=== PATIENT | male | born 1980 | race Caucasian/White ===

== ENCOUNTER 2021-04-07 11:38 | Emergency (ER) | payer SELFPAY ==
[2021-04-07 11:49] VITALS: BP 196/111; PULSE 70; RESP 18; TEMP 36.8; O2SAT 99
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
[2021-04-07] MEDS: Carbamide Peroxide 15 ML BTL (12:34)
--- NOTE | 2021-04-07 13:19 | NUR.NOTE ---
pt referral sent to [facility] to establish pcp
--- NOTE | 2021-04-10 09:17 | PDOC.ERCMPRO ---
- If Service Date Differs Date of service: 04/10/21 Time of Service: 09:18 Care Management Progress Note Bob is seen in the ED for an ear infection. At the request of ED provider, AUBRIE coordinates a referral to Pamela Mercer MD, of [facility], on-call provider, to assist Bob in obtaining a follow up appointment and in establishing care with a PCP. Bob is also referred to the [facility]'s community division human resources manager to assist him with exploring health insurance options, as he is currently uninsured.
== END 2021-04-07 13:28 | disposition home or self-care (01) ==
PROVIDERS: Emergency Provider Physician Assistant
DX: H66.92 Otitis media, unspecified, left ear (principal); H61.22 Impacted cerumen, left ear
CPT/HCPCS: 99283

== ENCOUNTER 2023-02-17 07:32 | Emergency (ER) | payer OTHER, SELFPAY ==
[2023-02-17 07:35] VITALS: BP 154/110; PULSE 74; RESP 16; TEMP 36.2; O2SAT 99
--- NOTE | 2023-02-17 08:15 | DI.RAD_ITS ---
Exam(s) XR SHOULDER RT COMPLETE 2+V EXAM: XR SHOULDER RT COMPLETE 2+V CLINICAL HISTORY: Fall 3 weeks ago, Shoulder pain. TECHNIQUE: 2D digital imaging was performed of the right shoulder. Five images were obtained. AP, Grashey, Y-view and axillary views were obtained. COMPARISON: No exams were available for comparison FINDINGS: BONES: No acute fracture is present. No bony destructive lesion is seen. JOINTS: No dislocation present. The acromioclavicular and glenohumeral joints are well maintained. SOFT TISSUE: Normal. IMPRESSION: Unremarkable radiographs of the right shoulder. DATA REPOSITORY: RADIATION DOSE DELIVERED:
--- NOTE | 2023-02-17 08:23 | ED.GENADUL_ITS ---
Discharge Plan Disposition Patient Disposition: Home Condition: Stable Discharge Details Clinical Impression: Other sprain of right shoulder joint, initial encounter Primary Care Provider: None,None ED Provider: Hannah Mccord Home Meds and New Rx's Prescriptions: New lidocaine 5 % adhesive patch,medicated 1 patch topical DAILY Qty: 15 0RF Rx Instructions: leave on most painful area for up to 12 hrs Continued Ibuprofen [Ibuprofen Ib] 200 MG Tablet No Action [id number] [DAY-TIME] 1 EACH capsule doxycycline hyclate 100 MG capsule 100 mg PO BID Qty: 19 0RF amoxicillin-pot clavulanate [Augmentin] 875-125 mg tablet 1 tab PO BID Qty: 14 0RF Discharge Instructions Instructions: Shoulder Sprain (ED) Additional Instructions: Alternate ice and heat. X-rays show no acute fracture, dislocation or significant abnormality. I have given you a physical therapy referral, please call to make an appointment if desired. I suspect that you sprained your shoulder and it may take a few more weeks for it to heal completely. If you continue to have worsening pain please follow-up with orthopedics. Take the muscle relaxers as prescribed, these may make you sleepy. Please take Tylenol or Ibuprofen with food every 4-6 hours as needed for pain and swelling. Do not take more than 4 tablets of ibuprofen no more than 3 times a day. Follow up with primary care provider in 3-5 days. Return to ED sooner if any worsening or concerns. Increase oral fluids. Stand Alone Forms: Physical Therapy Referral, Work Release Referrals: Marco A Hassan MD [ [facility] STAFF PHYSICIAN] - 2 weeks Medical Decision Making 42 year old male presents to the ED with CC of Right shoulder pain, stiffness, popping that is getting worse since a fall off a 15 foot ladder onto scaffolding approximately 3 weeks ago. Patient states he was holding onto ladder and hanging there with his right arm before he fell. Denies LOC, midline C spine, T, or L spine pain. Denies chest pain, or SOB, no rib pain, crepitus or stepoff palpated to chest wall on exam. He does have full ROM on exam, no obvious deformity. He has been taking Tylenol, and Ibuprofen at home with little relief. Shoulder XR ordered, suspect sprain. Diff diagnosis includes occult fracture, subacture fracture, ligament tear, musculoskeletal strain. X-ray of the shoulder shows nothing acute. We will give patient discharge instructions on musculoskeletal strain. We will give him Flexeril to go here in the department. Instructed on alternating ice and heat and given referral for physical therapy. This text was generated using [employer] system, please disregard any oddities of phrase or misspellings. Imaging Data Radiologic Study: Imaging: X-Ray Radiologist's impression: EXAM: XR SHOULDER RT COMPLETE 2+V CLINICAL HISTORY: Fall 3 weeks ago, Shoulder pain. TECHNIQUE: 2D digital imaging was performed of the right shoulder. Five images were obtained. AP, Grashey, Y-view and axillary views were obtained. COMPARISON: No exams were available for comparison FINDINGS: BONES: No acute fracture is present. No bony destructive lesion is seen. JOINTS: No dislocation present. The acromioclavicular and glenohumeral joints are well maintained. SOFT TISSUE: Normal. IMPRESSION: Unremarkable radiographs of the right shoulder. HPI General Mode of arrival: ambulatory . Date/Time Provider Initiated Documentation: 02/17/23 08:01 . Information obtained by: patient, RN notes reviewed and old records reviewed . HPI Narrative: 42 year old male presents to the ED with CC of Right shoulder pain, stiffness, popping that is getting worse since a fall off a 15 foot ladder onto scaffolding approximately 3 weeks ago. Patient states he was holding onto ladder and hanging there with his right arm before he fell. Denies LOC, midline C spine, T, or L spine pain. Denies chest pain, or SOB, no rib pain, crepitus or stepoff palpated to chest wall on exam. He does have full ROM on exam, no obvious deformity. He has been taking Tylenol, and Ibuprofen at home with little relief. Related Data Home Medications Medication Instructions Recorded Confirmed Ibuprofen [Ibuprofen Ib] 09/02/17 doxycycline hyclate 100 mg capsule 100 mg PO BID #19 caps 09/02/17 [id number] 09/02/17 30 mg-15 mg-325 mg capsule (DAY-TIME) amoxicillin 875 mg-potassium 1 tab PO BID #14 tabs 04/07/21 clavulanate 125 mg tablet (Augmentin) lidocaine 5 % topical patch 1 patch topical DAILY #15 ea 02/17/23 Previous Rx's Medication Instructions Recorded doxycycline hyclate 100 mg capsule 100 mg PO BID #19 caps 09/02/17 amoxicillin 875 mg-potassium 1 tab PO BID #14 tabs 04/07/21 clavulanate 125 mg tablet (Augmentin) lidocaine 5 % topical patch 1 patch topical DAILY #15 ea 02/17/23 Allergies Allergy/AdvReac Type Severity Reaction Status Date / Time Penicillins Allergy Swelling/Ed Unverified 02/17/23 07:52 mignon General Stated Complaint: Orthopedic LAURI: 4 Review of Systems All systems reviewed & are unremarkable except as noted in HPI and below Constitutional Constitutional: Denies headache(s) ENT Ears, Nose, Mouth, and Throat: Denies vertigo, Denies dizziness, Denies headache(s) and Reports neck pain (Right paraspinous pain, no midline pain) Cardiovascular Cardiovascular: Denies chest pain and Denies dyspnea Respiratory Respiratory: Denies dyspnea Musculoskeletal Musculoskeletal: Reports as per HPI, Denies back pain, Denies deformity, Reports arthralgias, Denies joint swelling, Denies limited range of motion, Reports neck pain (Right paraspinous pain, no midline pain), Denies numbness and Reports stiffness Neurologic Neurologic: Denies vertigo, Denies dizziness, Denies headache(s) and Denies numbness PFSH All Active Problems (Updated 02/17/23 @ 08:58 by Hannah Mccord NP) Otitis media (Acute) Cerumen impaction (Acute) Other sprain of right shoulder joint, initial encounter (Acute) Social History Smoking/Tobacco Use Status: Current every day Tobacco Type: e-cigarettes Smoking risk assessment performed?: Yes Alcohol Intake: current Alcohol Intake frequency: 3 or more drinks per day Drug use: Daily Substance use type: marijuana Housing: other Do you feel safe at home: Yes Do you feel safe in your relationship?: Yes Exam Narrative Exam Narrative: General: Well Developed, Awake and Alert, conversant. Skin: Warm and Dry HEENT: Head: No palpable deformities, Normocephalic Eyes: Pupils PERRLA, EOM's intact. Nose/Face: Atraumatic. Facial bones nontender to palpation and stable with manipulation. Mouth/Throat: No intraoral trauma. Teeth and mandible are intact. Neck: No midline tenderness, no step off, no deformity to palpation of C-spine. Trachea midline. Chest: No surface trauma. Nontender without crepitus or deformity. Lungs clear to ausculatation bilaterally. Heart: RRR, no rubs, murmurs or gallop. Extremities: no surface trauma. Sensation intact. Peripheral pulses intact and equal. No deformity no swelling no crepitus no step-off. Full range of motion intact. Stiffness and pain with active range of motion with pronation supination and external rotation. Neuro: ANO x4, GCS 15, Motor and sensory exam nonfocal. Course Vital Signs Vital signs: Vital Signs Temperature 36.2 C L 02/17/23 07:35 Pulse 74 02/17/23 07:35 Respiratory Rate 16 02/17/23 07:35 Blood Pressure 154/110 H 02/17/23 07:35 Pulse Oximetry 99 02/17/23 07:35 Temperature 36.2 C L 02/17/23 07:35 Pulse 74 02/17/23 07:35 Respiratory Rate 16 02/17/23 07:35 Respiratory Effort Normal, Non-Labored 02/17/23 07:47 Blood Pressure 154/110 H 02/17/23 07:35 Pulse Oximetry 99 02/17/23 07:35 Oxygen Delivery Method Room Air 02/17/23 07:35 Oxygen Flow Rate 0 02/17/23 07:35 Pain Level 9 02/17/23 07:47 PAWSS Have you Been Recently Intoxicated or Drunk Within the Last 30 days?: No Have you Ever Experienced Previous Episodes of Alcohol Withdrawal?: No Have you ever Experienced Withdrawal Seizures?: No Have you ever Experienced Delirium Tremens(DT)s?: No Have you ever undergone Alcohol Rehabilitation Treatment (i.e, inpt ot outpatient treatment programs)?: No Have you ever Experienced Blackouts?: No Have you ever Combined Alcohol with other Downers within the last 90 days?: No Have you ever Combined Alcohol with any other Substance of Abuse during the last 90 days?: No Result: 0
[2023-02-17] MEDS: Lidocaine 5% Patch 1 PATCH TP (09:22)
[2023-02-17] MEDS: Cyclobenzaprine 10 MG TAB PO (09:22)
--- NOTE | 2023-02-17 09:40 | NUR.NOTE ---
Nursing Note:referral to care management to establish primary for followup care
[2023-02-17] MEDS: Cyclobenzaprine 10 MG TAB, 3 TABS/BTL PO (09:43)
== END 2023-02-17 09:45 | disposition home or self-care (01) ==
PROVIDERS: Emergency Provider Registered Nurse Emergency
DX: S43.401A Unspecified sprain of right shoulder joint, initial encounter (principal); W11.XXXA Fall on and from ladder, initial encounter; Y93.89 Activity, other specified; Y92.89 Other specified places as the place of occurrence of the external cause; Y99.0 Civilian activity done for income or pay
CPT/HCPCS: 99283; 73030

== ENCOUNTER 2023-05-05 07:40 | Emergency (ER) | payer OTHER, SELFPAY ==
[2023-05-05 07:43] VITALS: BP 186/123; PULSE 74; RESP 18; TEMP 36.9; O2SAT 100
--- NOTE | 2023-05-05 08:00 | DI.RAD_ITS ---
Exam(s) XR CHEST 2V PA LATERAL EXAM: XR CHEST 2V PA LATERAL CLINICAL HISTORY: 6ft fall, right inf posterior lateral ribs TTP TECHNIQUE: 2D digital imaging was performed. COMPARISON: 02 September 2017 FINDINGS: HEART: Normal size. Aorta: Not dilated. PULMONARY VASCULATURE: Normal. LUNGS: Clear. PLEURAL SPACE: No pleural effusion or pneumothorax. BONE:Unremarkable for age. IMPRESSION: No acute abnormality. DATA REPOSITORY: RADIATION DOSE DELIVERED:
[2023-05-05] MEDS: Ketorolac 15 MG/ML VIAL IM (08:11)
[2023-05-05] MEDS: Acetaminophen 325 MG TAB 650 MG PO (08:11)
--- NOTE | 2023-05-05 08:16 | W.ED.GENAD ---
Discharge Plan Disposition Patient Disposition: Home Condition: Good Discharge Details Clinical Impression: Rib pain on right side Primary Care Provider: Derick Kumar ED Provider: Gely Bell Home Meds and New Rx's Prescriptions: No Action acetaminophen 500 mg capsule 1,500 mg PO Q6H PRN naproxen 500 mg tablet 500 mg PO BID PRN (Reason: pain) Qty: 60 0RF Ibuprofen [Ibuprofen Ib] 200 MG tablet lidocaine 5 % adhesive patch,medicated 1 patch topical DAILY Qty: 15 0RF Hold Instructions: Pt Stopped/Never Started Rx Instructions: leave on most painful area for up to 12 hrs Discharge Instructions Instructions: Chest Wall Pain (ED) Additional Instructions: Continue to take tylenol and ibuprofen at home; follow the directions on the bottle. Call your primary care doctor today to schedule an appointment to follow up on your visit here and discuss your high blood pressure. Return to the emergency department for new or worsening symptoms, including new/different/worse pain, or if you have any other concerns. Stand Alone Forms: Work Release Referrals: Derick Kumar DO [Primary Care Provider] - Medical Decision Making 42yo previously healthy male presenting with right rib pain after fall yesterday afternoon from about 6 feet up onto a wooden pallet. 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 Hypertensive on arrival, vital signs reassuring, right posterior lateral chest wall tenderness on exam otherwise no traumatic findings. History and exam consistent with trauma/MSK etiology; would not workup for cardiac etiology, AL, pulmonary embolism, etc., with labs or advanced imaging. Medicated with tylenol, toradol. CXR independently reviewed, no displaced fractures or pneumothorax on my view, agree with radiology read below. On reassessment he reports pain has improved. Advised symptomatic treatment at home. Patient reports known hypertension but not currently taking any medications. Instructed to followup with a PCP regarding hypertension; referral sent. Discharged home; discharge instructions including return precautions were reviewed with patient who verbalized understanding. All questions were answered and they are in full agreement with the plan. Imaging Data Radiologic Study: Radiologist's impression: IMPRESSION: No acute abnormality. HPI General Mode of arrival: ambulatory. Date/Time Provider Initiated Documentation: 05/05/23 07:48. Limitations to Documentation: no limitations. Information obtained by: patient. HPI Narrative: 42yo previously healthy male presenting with right rib pain after fall. Yesterday afternoon at work fell from about 6 feet up, landed on his right side on a wooden pallet. Right sided rib pain since then, worse with breathing. Thinks he may have struck his head; no loss of consciousness. No headache, nausea, or vomiting. Pain is dull, moderate, and improved with ibuprofen. He was able to sleep last night after taking medication. 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 He is otherwise in his usual state of health with no fevers, chills, rash, abdominal pain, extremity pain, numbness, tingling, weakness, or other concerns. Related Data Home Medications Medication Instructions Recorded Confirmed Ibuprofen [Ibuprofen Ib] 09/02/17 02/26/23 lidocaine 5 % topical patch 1 patch topical DAILY #15 ea 02/17/23 05/05/23 acetaminophen 500 mg capsule 1,500 mg PO Q6H PRN 02/26/23 05/05/23 naproxen 500 mg tablet 500 mg PO BID PRN pain #60 tabs 02/26/23 05/05/23 Previous Rx's Medication Instructions Recorded lidocaine 5 % topical patch 1 patch topical DAILY #15 ea 02/17/23 naproxen 500 mg tablet 500 mg PO BID PRN pain #60 tabs 02/26/23 Allergies Allergy/AdvReac Type Severity Reaction Status Date / Time Penicillins Allergy Swelling/Ed Unverified 05/05/23 07:54 mignon General Stated Complaint: Fall/Non TraumaCriteria LAURI: 4 Review of Systems Narrative: see [facility] All Active Problems (Updated 05/05/23 @ 09:20 by Gely Bell MD) Rib pain on right side (Acute) Right shoulder injury (Acute) Otitis media (Acute) Cerumen impaction (Acute) Social History Smoking/Tobacco Use Status: Current every day Tobacco Type: e-cigarettes Smoking risk assessment performed?: Yes Alcohol Intake: current Alcohol Intake frequency: 3 or more drinks per day Drug use: Daily Substance use type: marijuana Housing: house Do you feel safe at home: Yes Do you feel safe in your relationship?: Yes Exam Narrative Exam Narrative: GENERAL: Alert, no acute distress. SKIN: Warm and well perfused. No rashes, bruises, discolorations or abrasions. HEAD: Atraumatic, normocephalic without edema, discoloration or evidence of trauma. EYES: PERRL. No scleral icterus or conjunctival injection. EARS: No hemotympanum. MOUTH: No malocclusion or trismus. NECK: Trachea midline. No discolorations or edema. CV: Regular rate and rhythm, Normal s1 and s2. No murmurs, rubs, or gallops. PV: Radial pulses 2+ bilaterally and symmetric. 2+ capillary refill. No extremity edema. CHEST: No abrasions or ecchymosis. Chest symmetric with respirations. Right posterior lateral chest wall TTP. No crepitus. Lungs are clear to auscultation bilaterally. ABDOMEN: No ecchymosis or abrasions. Soft, nondistended, nontender. BACK: No abrasions, skin openings, or ecchymosis. Spine without bony tenderness. PELVIC: Pelvis stable, nontender to lateral compression MSK: No gross deformities.. Tolerates full range of motion of extremities without tenderness. NEURO: GCS 15. Sensation grossly intact. Moves all extremities freely against gravity. Course Vital Signs Vital signs: Vital Signs Temperature 36.9 C 05/05/23 07:43 Pulse 74 05/05/23 07:43 Respiratory Rate 18 05/05/23 07:43 Blood Pressure 186/123 H 05/05/23 07:43 Pulse Oximetry 100 05/05/23 07:43 Temperature 36.9 C 05/05/23 07:43 Pulse 74 05/05/23 07:43 Respiratory Rate 18 05/05/23 07:43 Respiratory Effort Short of Breath 05/05/23 07:46 Blood Pressure 186/123 H 05/05/23 07:43 Pulse Oximetry 100 05/05/23 07:43 Oxygen Delivery Method Room Air 05/05/23 07:43 Oxygen Flow Rate 0 05/05/23 07:43 PAWSS Have you Been Recently Intoxicated or Drunk Within the Last 30 days?: No Have you Ever Experienced Previous Episodes of Alcohol Withdrawal?: No Have you ever Experienced Withdrawal Seizures?: No Have you ever Experienced Delirium Tremens(DT)s?: No Have you ever undergone Alcohol Rehabilitation Treatment (i.e, inpt ot outpatient treatment programs)?: No Have you ever Experienced Blackouts?: No Have you ever Combined Alcohol with other Downers within the last 90 days?: No Have you ever Combined Alcohol with any other Substance of Abuse during the last 90 days?: No Positive Blood Alcohol level on Presentation? [PCS.BAL]: No Evidence of Increased Autonomic Activity (i.e. HR>120, tremor, sweating, agitation, nausea)?: No Result: 0
[2023-05-05 09:31] VITALS: BP 215/143; PULSE 66; RESP 18; O2SAT 100
--- NOTE | 2023-05-05 09:31 | NUR.NOTE ---
Referral given to Care Management for needsPCP/hypertension, establish care/ within 2 weeks. Nursing Note:
== END 2023-05-05 09:35 | disposition home or self-care (01) ==
PROVIDERS: Emergency Provider Student in an Organized Health Care Education/Training Program; PCP Family Medicine
DX: R07.81 Pleurodynia; I10 Essential (primary) hypertension; W17.89XA Other fall from one level to another, initial encounter; Y99.0 Civilian activity done for income or pay; F17.200 Nicotine dependence, unspecified, uncomplicated; Z88.0 Allergy status to penicillin
CPT/HCPCS: 96372; 99284; 71046; J1885

== ENCOUNTER 2023-05-10 21:27 | Emergency (ER) | payer OTHER, SELFPAY ==
[2023-05-10 21:29] VITALS: BP 143/90; PULSE 84; RESP 18; TEMP 36.6; O2SAT 95
--- NOTE | 2023-05-10 21:45 | DI.RAD_ITS ---
Exam(s) XR RIBS RT W PA LAT CHEST Exam: XR RIBS RT W PA LAT CHEST CLINICAL HISTORY: right rib pain TECHNIQUE: 2D digital imaging was performed. PA and lateral chest. Four views right ribs. COMPARISON: CR XR CHEST 2V PA LATERAL from 05/05/2023 FINDINGS: MEDIASTINUM: Normal. HEART: Normal. PULMONARY VASCULATURE: Normal. LUNGS: Clear. PLEURAL SPACE: No pleural effusion or pneumothorax. SPINE:NORMAL. Right RIBS: Mildly displaced fractures of the lateral right 8th and 9th ribs. OTHER FINDINGS:Normal. IMPRESSION: 1. No acute pulmonary findings. 2. Mildly displaced fractures right 8th and 9th ribs. DATA REPOSITORY: RADIATION DOSE DELIVERED:
[2023-05-10] MEDS: Lidocaine 5% Patch 1 PATCH TP (22:00)
--- NOTE | 2023-05-10 22:42 | ED.GENADUL_ITS ---
Discharge Plan Disposition Patient Disposition: Home Discharge Details Clinical Impression: Multiple rib fractures Primary Care Provider: Derick Kumar ED Provider: Millicent Spencer Home Meds and New Rx's Prescriptions: New oxycodone 5 mg tablet 5 mg PO Q6H PRNQty: 12 0RF cyclobenzaprine 10 mg tablet 10 mg PO TID PRNQty: 14 0RF lidocaine [Lidoderm] 5 % adhesive patch,medicated 1 patch topical DAILY Qty: 15 0RF Rx Instructions: leave on most painful area for up to 12 hrs Continued acetaminophen 500 mg capsule 1,500 mg PO Q6H PRN Ibuprofen [Ibuprofen Ib] 200 MG tablet Discharge Instructions Instructions: Rib Fracture (ED) Additional Instructions: take oxycodone sparingly, this can become addictive, do not drive for 8 hours after taking this medication You may take Flexeril for additional pain control, do not drive your vehicle for 8 hours after taking this medication You may apply Lidoderm patch, 12 hours on, 12 hours off Use a spirometer at least 10 times a day to prevent pneumonia Return earlier should you have new or worsening complaints including fever, chills, worsening cough Recommendation would be to start taking MiraLAX or Dulcolax to help with your constipation Stand Alone Forms: Work Release Referrals: Derick Kumar DO [Primary Care Provider] - Medical Decision Making 42-year-old male presenting with persistent and worsening right chest wall pain after a fall, I did order repeat x-ray to evaluate for pneumothorax although lung sounds are intact bilaterally, patient is alert and oriented, no visible signs of trauma, reproducible right lateral chest wall pain, x-ray shows evidence of 2 rib fractures to ribs 8 and 9 Given oxycodone for pain, spirometry, work note for 2 weeks No evidence of pneumonia or pneumothorax on x-ray pending my interpretation, pending radiology review Return precautions reviewed and patient expressed understanding No evidence of subcutaneous air, no abdominal tenderness, specifically no tenderness of her right liver or spleen, no retroperitoneal bruising or tenderness appreciated Distal pulses intact HPI General Date/Time Provider Initiated Documentation: 05/10/23 21:34 . HPI Narrative: 42-year-old gentleman presents approximately 6 days after a fall while stefan approximately 6 feet and injuring the right side of his chest. Denies any shortness of breath but states the pain is not improving. Denies fever or chills. Has had a cough, smokes daily. Denies any head injury or neck pain. Denies any abdominal pain. Related Data Home Medications Medication Instructions Recorded Confirmed Ibuprofen [Ibuprofen Ib] 09/02/17 02/26/23 acetaminophen 500 mg capsule 1,500 mg PO Q6H PRN 02/26/23 05/10/23 cyclobenzaprine 10 mg tablet 10 mg PO TID PRN #14 tabs 05/10/23 lidocaine 5 % topical patch 1 patch topical DAILY #15 ea 05/10/23 (Lidoderm) oxycodone 5 mg tablet 5 mg PO Q6H PRN #12 tabs 05/10/23 Previous Rx's Medication Instructions Recorded cyclobenzaprine 10 mg tablet 10 mg PO TID PRN #14 tabs 05/10/23 lidocaine 5 % topical patch 1 patch topical DAILY #15 ea 05/10/23 (Lidoderm) oxycodone 5 mg tablet 5 mg PO Q6H PRN #12 tabs 05/10/23 Allergies Allergy/AdvReac Type Severity Reaction Status Date / Time Penicillins Allergy Swelling/Ed Unverified 05/10/23 21:33 mignon General Stated Complaint: Recheck LAURI: 4 PFSH All Active Problems (Updated 05/10/23 @ 22:39 by KINGSTON Toney) Multiple rib fractures (Acute) Rib pain on right side (Acute) Right shoulder injury (Acute) Otitis media (Acute) Cerumen impaction (Acute) Social History Smoking/Tobacco Use Status: Current every day Tobacco Type: e-cigarettes Smoking risk assessment performed?: Yes Alcohol Intake: current Alcohol Intake frequency: 3 or more drinks per day Alcohol type: beer Drug use: Daily Substance use type: does not use Housing: house Do you feel safe at home: Yes Do you feel safe in your relationship?: Yes Course Vital Signs Vital signs: Vital Signs Temperature 36.6 C 05/10/23 21: Pulse 84 05/10/23 21:29 Respiratory Rate 18 05/10/23 21:29 Blood Pressure 143/90 H 05/10/23 21:29 Pulse Oximetry 95 05/10/23 21:29 Temperature 36.6 C 05/10/23 21:29 Temperature Source Oral 05/10/23 21:29 Pulse 84 05/10/23 21:29 Respiratory Rate 18 05/10/23 21:29 Respiratory Effort Normal, Non-Labored 05/10/23 21:32 Blood Pressure 143/90 H 05/10/23 21:29 Blood Pressure Position Sitting 05/10/23 21:29 Pulse Oximetry 95 05/10/23 21:29 Oxygen Delivery Method Room Air 05/10/23 21:29 Oxygen Flow Rate 0 05/10/23 21:29 Pain Level 9 05/10/23 21:29 PAWSS Have you Been Recently Intoxicated or Drunk Within the Last 30 days?: No Have you Ever Experienced Previous Episodes of Alcohol Withdrawal?: No Have you ever Experienced Withdrawal Seizures?: No Have you ever Experienced Delirium Tremens(DT)s?: No Have you ever undergone Alcohol Rehabilitation Treatment (i.e, inpt ot outpatient treatment programs)?: No Have you ever Experienced Blackouts?: No Have you ever Combined Alcohol with other Downers within the last 90 days?: No Have you ever Combined Alcohol with any other Substance of Abuse during the last 90 days?: No Positive Blood Alcohol level on Presentation? [PCS.BAL]: No Evidence of Increased Autonomic Activity (i.e. HR>120, tremor, sweating, agitation, nausea)?: No Result: 0
[2023-05-10 22:46] VITALS: BP 145/83; PULSE 67; RESP 16; O2SAT 95
--- NOTE | 2023-05-10 23:21 | DI.[facility]AD_ITS ---
PROCEDURE INFORMATION: Exam: XR Right Ribs with PA Chest Exam date and time: 05/10/2023 10:06 PM Age: 42 years old Clinical indication: Right-sided; Other: R rib pain; Patient HX: Right rib pain; Additional info: Bb placed at site of most pain, pain wraps around TECHNIQUE: Imaging protocol: Radiologic exam of the right ribs with PA chest. Views: 3 views COMPARISON: CR XR CHEST 2V PA LATERAL 05/05/2023 8:26 AM FINDINGS: Lungs: No consolidation. No Mass Pleural spaces: No pneumothorax or pleural effusion. Heart/Mediastinum: Unremarkable Bones/joints: Fractures of the angles of the right 9th and 10th ribs. No significant displacement. IMPRESSION: Uncomplicated right 9th and 10th rib fractures. PROCEDURE INFORMATION: Exam: XR Chest Exam date and time: 05/10/2023 10:06 PM Age: 42 years old Clinical indication: Right-sided; Other: R rib pain; Patient HX: Right rib pain; Additional info: Bb placed at site of most pain, pain wraps around TECHNIQUE: Imaging protocol: Radiologic exam of the chest. Views: 2 views. COMPARISON: CR XR CHEST 2V PA LATERAL 05/05/2023 8:26 AM FINDINGS: Lungs: No consolidation. No Mass Pleural spaces: No pneumothorax or pleural effusion. Heart/Mediastinum: Unremarkable Bones/joints: Fractures of the angles of the right 9th and 10th ribs. No significant displacement. IMPRESSION: Uncomplicated right 9th and 10th rib fractures. Dictated and Authenticated by: Jean Claude Means MD. Ordering:CHAPARRITA Ricks MD
== END 2023-05-10 22:46 | disposition home or self-care (01) ==
PROVIDERS: Emergency Provider Physician Assistant; PCP Family Medicine
DX: R07.9 Chest pain, unspecified (principal); Z72.0 Tobacco use; S22.41XA Multiple fractures of ribs, right side, initial encounter for closed fracture; W13.2XXA Fall from, out of or through roof, initial encounter; Y93.H3 Activity, building and construction; Y99.0 Civilian activity done for income or pay; R05.9 Cough, unspecified
CPT/HCPCS: 99283; 71046; 71100; 99284

== ENCOUNTER → 2023-06-16 00:52 | Outpatient (CLI) | payer OTHER, SELFPAY ==
--- NOTE | 2023-06-16 08:00 | DI.MRI_ITS ---
Exam(s) MR UPPER JOINT RT WO EXAM: MR UPPER JOINT RT WO CLINICAL HISTORY: Work injury 6 weeks prior, possible rotator cuff tear,S49.91xa. TECHNIQUE: Multiplanar multisequence MRI was performed. COMPARISON: Plain films 17 February 2023 FINDINGS: BONES: There is no fracture or suspicious lesion.. JOINTS:The acromioclavicular joint shows minimal degenerative change. There is some high signal in t he adjacent acromion and distal clavicle. There is no widening of the joint. The glenohumeral joint is normal. TENDONS: Supraspinatus: Minimal intermediate signal consistent with mild tendinosis. Infraspinatus: Unremarkable. Subscapularis: Unremarkable. Teres Minor: Unremarkable. Biceps and Lincoln: Unremarkable. MUSCLES: Unremarkable. GLENOID LABRUM: Unremarkable on this noncontrast examination. SOFT TISSUES: Unremarkable. OTHER: Subacromial and subdeltoid bursae -minimal fluid.. IMPRESSION: Mild supraspinatus tendinosis. Edema around the AC joint without evidence of widening. The findings could be posttraumatic. DATA REPOSITORY:
== END ==
PROVIDERS: PCP Family Medicine; Visit Provider Family Medicine
DX: M77.8 Other enthesopathies, not elsewhere classified (principal); Y99.0 Civilian activity done for income or pay
CPT/HCPCS: 73221

== ENCOUNTER 2024-11-25 18:19 | Emergency (ER) | payer SELFPAY ==
[2024-11-25] VITALS (23 sets, daily range): BP systolic 69–250; BP diastolic 38–135; PULSE 66–94; RESP 9–22; TEMP 36.2; O2SAT 95–99
--- NOTE | 2024-11-25 18:15 | DI.CT_ITS ---
Exam(s) CT CHEST/ABD/PEL W CT THORACIC LUMBAR SPINE REC EXAM: CT CHEST/ABD/PEL W and CT thoracic and lumbar spine recons CLINICAL HISTORY: TRAUMA TECHNIQUE: Imaging Protocol: Axial computed tomography images with coronal and sagittal reformatted images were created and reviewed. Lung Computer Aided Detection (CAD) was utilized. CONTRAST MATERIAL: Intravenous: Omnipaque 350 contrast volume:100 mL Oral: No COMPARISON: CT CHEST ABD PELVIS WITH CONTRAST from 04/10/[address] THORACIC LUMBAR SPINE REC from 11/25/2024 FINDINGS: CHEST: Tracheobronchial tree: Patent where visualized. No evidence of bronchiectasis. Pulmonary parenchyma: No consolidation or dominant measurable mass. There are small blebs seen in the upper lobes. Visualized thyroid gland: Unremarkable. Mediastinum and Binta: No dominant adenopathy or fluid collection. The esophagus is unremarkable. Pleura: No effusion or pneumothorax. Heart: The heart is not dilated. No coronary artery calcifications are seen. No pericardial effusion. Pulmonary arteries: No pulmonary emboli are identified. Aorta: Thoracic aorta non-dilated. No evidence of dissection. Lymph nodes: Within normal limits. Soft tissues: Unremarkable. Bones:Within normal limits for the patient's age. CT thoracic spine recons: No acute fractures or subluxations are present compared to the examination from 04/10/2013. Age-appropriate degenerative changes are present. CT lumbar spine recons: No acute fractures or subluxations are present. Age-appropriate degenerative changes are seen in the lumbar spine. ABDOMEN: Liver: Normal density. No measurable mass. Portal, Superior Mesenteric, and Splenic Veins: Unremarkable. Gallbladder and Biliary Tract: No radiodense calculus or dilation. Pancreas: Normal density, no abnormal calcifications or inflammatory process. Spleen: Normal. Adrenals: No masses seen. Kidneys: Normal size, contour and axis. No radiodense stones or obstructive uropathy. No masses seen. Abdominal Aorta: Abdominal portion non-dilated. No evidence of dissection. Bowel: No obstruction or bowel wall thickening. Appendix is unremarkable. Peritoneal Cavity: No ascites, collection or mesenteric inflammatory response. No free air. Lymph Nodes: Within normal limits. Bones: Within normal limits for the patient's age. There is an intramedullary betsey seen in the proxim al left femur. Soft Tissues: Unremarkable. PELVIS: Bladder: Symmetric distention, no gross wall thickening. Reproductive Organs: Unremarkable as visualized. Lymph Nodes: Within normal limits. Bones: Within normal limits. IMPRESSION: 1. No acute pulmonary process. 2. No acute fracture or subluxation seen in the thoracic or lumbar spine. 3. No acute abdominal or pelvic organ injury. RADIATION DOSE DELIVERED: 723.7mGy.cm Total DLP DATA REPOSITORY: All CT scans at this facility are submitted to the National Radiology Data Registry (NRDR) Dose Index Registry (DIR) with the [employer] (A[employer]). RADIATION OPTIMIZATION: All CT scans at this facility use at least one of these dose optimization te chniques: automated exposure control; mA and/or kV adjustment per patient size (includes targeted exa ms where dose is matched to clinical indication); or iterative reconstruction.
--- NOTE | 2024-11-25 18:15 | DI.CT_ITS ---
Exam(s) CT HEAD CERV SPINE FACIAL WO EXAM: CT HEAD CERV SPINE FACIAL WO CLINICAL HISTORY: TRAUMA. TECHNIQUE: Imaging Protocol: Axial computed tomography images with coronal and sagittal reformatted images were created and reviewed COMPARISON: No exams were available for comparison FINDINGS: CT Head: Ventricles and Extra axial spaces: Normal in size and morphology for the patient's age. Hemorrhage: None. Cerebral parenchyma: Normal. Midline shift: None. Brainstem/Cerebellum: Normal. Calvarium: Normal. Visualized Paranasal sinuses/Mastoids: Clear. Soft Tissues: There is a laceration and scalp hematoma overlying the left parietal bone. There is a large amount of air seen in the subcutaneous tissues. CT Face: Facial Bones: No definite fracture is noted in facial bones. Sinuses and Mastoids: Unremarkable. Globes, extraocular muscles, optic nerves and retrobulbar fat: Normal. Upper aerodigestive tract: Normal. Mandible and bilateral temporomandibular joints: Normal. Soft tissues: Mild soft tissue swelling over the right cheek. Mild periorbital soft tissue swelling. There are 2 tiny densities seen over the bridge of the nose (series 10, image 144). These may repr esent foreign bodies. Please correlate clinically. CT Cervical Spine: Bones: No acute fracture or subluxation. Age-appropriate degenerative changes are seen in the cervica l spine. There is mild reversal of the normal cervical lordosis. This may be due to muscle spasm or patient positioning. Soft Tissues: Unremarkable. Lung Apices: There are peripheral small blebs in the lung apices. The lung apices are otherwise ash r. IMPRESSION: 1. No acute intracranial process. 2. Large left parietal scalp hematoma and laceration. 3. No acute fracture or subluxation in the cervical spine. 4. No acute facial fracture. 5. Mild bilateral periorbital soft tissue swelling and soft tissue swelling of the right cheek. 6. Two density seen in the subcutaneous tissues overlying the bridge of the nose which may represent foreign bodies. Please for correlate with physical exam. 7. The preliminary [facility] report was reviewed. RADIATION DOSE DELIVERED: !Error Total DLP DATA REPOSITORY: All CT scans at this facility are submitted to the National Radiology Data Registry (NRDR) Dose Index Registry (DIR) with the [employer] (ACR). RADIATION OPTIMIZATION: All CT scans at this facility use at least one of these dose optimization te chniques: automated exposure control; mA and/or kV adjustment per patient size (includes targeted exa ms where dose is matched to clinical indication); or iterative reconstruction.
[2024-11-25 18:36] LABS: BE (Venous) -1 mmol/L (-2-3); HCO3 (Venous) 23 mmol/L (23-28); O2 Sat (Venous) 92 %; TCO2 (Venous) 20 mmol/L (24-29); pCO2 (Venous) 34 mmHg (41-51); pH (Venous) 7.44 (7.31-7.41); pO2 (Venous) 60 mmHg
[2024-11-25 18:38] LABS: Lactate 2.1 mmol/L (<or=2.0)
[2024-11-25 18:40] LABS: Abs Immature Grans 0.02 10^3/uL (0.0-0.06); Absolute Basophil Count 0.11 10^3/uL (0.0-0.2); Absolute Eosinophil Count 0.33 10^3/uL (0.0-0.7); Absolute Monocyte Count 0.81 10^3/uL (0.1-0.8); Absolute Neutrophil Count 4.67 10^3/uL (1.2-6.7); Basophils % 1.2 %; Eosinophils % 3.7 %; HCT 40.2 % (40.0-50.0); HGB 14.1 g/dL (13.5-17.5); Immature Grans % 0.2 %; Lymphocytes % 32.8 %; MCH 31.7 pg (27.0-33.0); MCHC 35.1 % (32.0-36.0); MCV 90 fL (80-95); MPV 9.7 fL (8.0-11.0); Monocytes % 9.2 %; Neutrophils % 52.9 %; Platelet Count 218 10^3/uL (130-400); RBC 4.45 10^6/uL (4.36-5.78); RDW 11.9 % (11.8-14.1); RDW-SD 39.5 fL; WBC 8.84 10^3/uL (4.4-10.8)
[2024-11-25] MEDS: Lidocaine 2% Multi-Dose W/EPI 1/100,000 20 ML VIAL (18:40)
--- NOTE | 2024-11-25 18:45 | DI.CT_ITS ---
Exam(s) CT LOWER EXTREMITY LT WO EXAM: CT LOWER EXTREMITY LT WO CLINICAL HISTORY: trauma, pain mid femur. TECHNIQUE: Imaging Protocol: Axial computed tomography images with coronal and sagittal reformatted images were created and reviewed. COMPARISON: No exams were available for comparison FINDINGS: Bones: There is an intramedullary betsey transfixing an old healed left femoral fracture. No lucencies are seen about the orthopedic hardware to suggest loosening. Bony alignment is satisfactory. No ac [place] femoral fracture is identified. The visualized knee and hips are intact. No dislocation is pres ent. There is chondrocalcinosis in the medial femoral tibial joint. No lytic or sclerotic lesions a re identified. There is an intramedullary nail seen in the superior aspect of the tibia. Soft Tissues: Dystrophic calcifications are seen adjacent to the greater tuberosity. There is contra st seen in the urinary bladder consistent with the patient's recent CT examination. IMPRESSION: 1. There is no acute fracture or dislocation present. 2. Intramedullary betsey transfixing a healed left femoral fracture. No evidence of hardware loosening. 3. The preliminary [facility] report was reviewed. RADIATION DOSE DELIVERED: 446.85mGy.cm Total DLP 446.85mGy.cm Total DLP DATA REPOSITORY: All CT scans at this facility are submitted to the National Radiology Data Registry (NRDR) Dose Index Registry (DIR) with the [employer] ([employer]). RADIATION OPTIMIZATION: All CT scans at this facility use at least one of these dose optimization te chniques: automated exposure control; mA and/or kV adjustment per patient size (includes targeted exa ms where dose is matched to clinical indication); or iterative reconstruction.
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
[2024-11-25 18:55] LABS: PTT Activated 25.2 sec (20.6-30.2); Prothrombin Time 10.3 sec (9.1-11.1)
[2024-11-25 18:59] LABS: ALT 28 U/L (16-63); AST 30 U/L (15-37); Albumin 4.2 g/dL (3.4-5.0); Alkaline Phosphatase 87 U/L (46-116); Anion Gap 11.3 mmol/L (3-11); BUN 22 mg/dL (7-18); Bilirubin, Direct 0.3 mg/dL (0.0-0.2); Bilirubin, Total 1.2 mg/dL (0.2-1.0); CO2 23.7 mmol/L (21.0-32.0); Chloride 99 mmol/L (98-107); Glucose 116 mg/dL (74-106); Lipase 84 U/L (<78); Magnesium 1.8 mg/dL (1.8-2.4); Potassium 3.5 mmol/L (3.5-5.1); Sodium 134 mmol/L (136-145); Total Protein 7.3 g/dL (6.4-8.2); Troponin I 6 ng/L (<or=76)
[2024-11-25 19:00] LABS: ETHANOL BLOOD 124.8 mg/dL (<10)
[2024-11-25] MEDS: Omnipaque 350 MG/ML 100 ML BTL IJ (19:13)
[2024-11-25] MEDS: Normal Saline - Diluent 50 ML VIAL IJ (19:14)
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
[2024-11-25] MEDS: TRANEXAMIC ACID/SOD. CHL. 1,000 MG/100 ML BAG 600 MG IVPB (19:41)
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
--- NOTE | 2024-11-25 19:49 | DI.VRAD_ITS ---
PROCEDURE INFORMATION: Exam: CT Chest With Contrast; Diagnostic Exam date and time: 11/25/2024 6:52 PM Age: 44 years old Clinical indication: Pain; Other: Trauma TECHNIQUE: Imaging protocol: Diagnostic computed tomography of the chest with contrast. Contrast material: OMNIPAQUE 350; Contrast volume: 100 ml; Contrast route: INTRAVENOUS (IV); COMPARISON: CR XR RIBS RT W PA LAT CHEST 05/10/2023 10:06 PM FINDINGS: Lungs: The lungs are clear. No suspicious pulmonary nodules which require follow-up. Pleural spaces: Unremarkable. No pneumothorax. No pleural effusion. Heart: Heart is normal size. No pericardial effusion. Lymph nodes: Unremarkable. No enlarged lymph nodes. Vasculature: Unremarkable. No aortic aneurysm. Bones/joints: Unremarkable. No acute fracture. Soft tissues: Unremarkable. IMPRESSION: No acute pulmonary findings. PROCEDURE INFORMATION: Exam: CT Abdomen And Pelvis With Contrast Exam date and time: 11/25/2024 6:52 PM Age: 44 years old Clinical indication: Pain; Other: Trauma TECHNIQUE: Imaging protocol: Computed tomography of the abdomen and pelvis with contrast. Contrast material: OMNIPAQUE 350; Contrast volume: 100 ml; Contrast route: INTRAVENOUS (IV); COMPARISON: CT THORACIC LUMBAR SPINE REC 11/25/2024 6:52 PM FINDINGS: Liver: The liver has a normal appearance. Gallbladder and biliary ducts: The gallbladder is unremarkable. No biliary ductal dilatation. Pancreas: The pancreas demonstrates normal size. No pancreatic ductal dilatation. Spleen: The spleen demonstrates normal size. Adrenal glands: The adrenal glands have a normal appearance. Kidneys and ureters: The kidneys are normal in size. No nephrolithiasis or hydronephrosis. No hydroureter or ureterolithiasis. Stomach and bowel: The bowel demonstrates overall normal caliber and wall thickness. Appendix: The appendix is thin walled. Intraperitoneal space: Unremarkable. No free air. No significant fluid collection. Vasculature: The IVC and aorta have a normal appearance. Lymph nodes: No enlarged lymph nodes. Urinary bladder: The bladder is thin walled and fluid filled. Reproductive: Unremarkable as visualized. Bones/joints: Bones have a normal appearance. No acute fracture or suspicious bone lesion. Soft tissues: Unremarkable. IMPRESSION: 1. No acute intra-abdominal findings. 2. Normal appendix. Dictated and Authenticated by: Suzanna Silva MD. Orderin Sylvester Rojas MD
--- NOTE | 2024-11-25 19:51 | DI.VRAD_ITS ---
PROCEDURE INFORMATION: Exam: CT Thoracic Spine Without Contrast Exam date and time: 11/25/2024 6:52 PM Age: 44 years old Clinical indication: Pain; Other: Trauma TECHNIQUE: Imaging protocol: Computed tomography of the thoracic spine without contrast. COMPARISON: No relevant prior studies available. FINDINGS: Bones/joints: No acute fracture. Normal alignment. No significant disc bulge or herniation. No severe spinal canal stenosis. No significant neural foraminal narrowing. Soft tissues: Unremarkable. IMPRESSION: Unremarkable CT Spine. PROCEDURE INFORMATION: Exam: CT Lumbar Spine Without Contrast Exam date and time: 11/25/2024 6:52 PM Age: 44 years old Clinical indication: Pain; Other: Trauma TECHNIQUE: Imaging protocol: Computed tomography of the lumbar spine without contrast. COMPARISON: CT CHEST/ABD/PEL W 11/25/2024 6:52 PM FINDINGS: Bones/joints: No acute fracture. Normal alignment. No significant disc bulge or herniation. No severe spinal canal stenosis. No significant neural foraminal narrowing. Soft tissues: Unremarkable. IMPRESSION: No acute findings. Dictated and Authenticated by: Suzanna Silva MD. Orderin Sylvester Rojas MD
[2024-11-25 20:02] LABS: HGB 11.4 g/dL (13.5-17.5); MCH 31.8 pg (27.0-33.0); MCHC 34.5 % (32.0-36.0); MCV 92 fL (80-95); MPV 9.6 fL (8.0-11.0); Platelet Count 198 10^3/uL (130-400); RBC 3.59 10^6/uL (4.36-5.78); RDW 12.1 % (11.8-14.1); RDW-SD 41.1 fL; WBC 14.44 10^3/uL (4.4-10.8)
[2024-11-25] MEDS: Ondansetron 4 MG/2 ML VIAL IVP (20:07)
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
[2024-11-25] MEDS: Lactated Ringers 1,000 ML 100 ML IV (20:21)
[2024-11-25 20:28] LABS: Troponin I 5 ng/L (<or=76)
--- NOTE | 2024-11-26 08:12 | NUR.NOTE ---
Nursing Note:The lab called looking for information on the blood that was transfused last night. It appears it might have been a code blood so nothing is documented in the [facility]. We are currently looking for the code blood paperwork and if we are unable to located it, the nurse who appears to have cared for this patient will be on shift today so we can discuss what happened with him. The lab has been notified that this is the plan and we will continue to work on figuring this out.
--- NOTE | 2024-11-28 07:26 | NUR.NOTE ---
Accessed chart to reconcile orders for EKG with EKG?s in [facility]. No EKG noted in provider note and none in [facility]. Nursing Note:
== END 2024-11-25 20:45 | disposition short-term general hospital (02) ==
LOC: ER 20:45
PROVIDERS: Physician Assistant; Emergency Provider Student in an Organized Health Care Education/Training Program; PCP Family Medicine
DX: S06.891A Other specified intracranial injury with loss of consciousness of 30 minutes or less, initial encounter (principal); S01.01XA Laceration without foreign body of scalp, initial encounter; S00.03XA Contusion of scalp, initial encounter; S02.5XXA Fracture of tooth (traumatic), initial encounter for closed fracture; S01.81XA Laceration without foreign body of other part of head, initial encounter; S70.12XA Contusion of left thigh, initial encounter; T79.4XXA Traumatic shock, initial encounter; F10.120 Alcohol abuse with intoxication, uncomplicated; I10 Essential (primary) hypertension; F17.290 Nicotine dependence, other tobacco product, uncomplicated; V47.5XXA Car driver injured in collision with fixed or stationary object in traffic accident, initial encounter
CPT/HCPCS: 12031; 36430; 74177; 80048; 80076; 82805; 83690; 85027; 86850; 86900; 86901; 86920; 96365; 96375; 99291; 70450; 70486; 71260; 72125; 73700; 80320; 83605; 83735; 84484; 85025; 85610; 85730; J2004; J2405; J3490; P9016

== ENCOUNTER 2024-12-10 11:47 | Emergency (ER) | payer SELFPAY ==
[2024-12-10 11:52] VITALS: BP 168/95; PULSE 87; RESP 20; TEMP 36.9; O2SAT 98
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
== END 2024-12-10 12:26 | disposition home or self-care (01) ==
LOC: ER 12:25
PROVIDERS: Emergency Provider Registered Nurse Emergency; PCP Family Medicine
DX: Z48.02 Encounter for removal of sutures (principal)
CPT/HCPCS: 99283; 99281